=== PATIENT | female | born 1970 | race Caucasian/White ===

== ENCOUNTER 2017-06-29 15:46 | Emergency (ER) | payer MEDICAID, SELFPAY ==
[2017-06-29 15:48] VITALS: BP 161/97; PULSE 83; RESP 18; TEMP 36.8; O2SAT 95; BMI 35.3
--- NOTE | 2017-06-29 16:16 | ED.DCSUM_ITS ---
- ER Visit Summary Date of Service: 06/29/17 Chief Complaint: Sore throat and left ear pain History of Present Illness: The patient is a 47 F presenting with 2 days of sore throat and left ear pain. Left ear pain is worse than the throat. She has not tried treatment yet at home. No neck pain or rash. Physical Examination: No fever here. Throat is mildly erythematous but no exudates. Uvula midline. Voice normal. Left tympanic membrane is bulging and erythematous. I cannot visualize landmarks. Test Results: None performed Emergency Department Course and Treatment: He does appear to have an otitis media on the left. We will treat with oral antibiotics. Treatment Plan: Oral antibiotics and close follow-up Disposition: Home in stable condition Impression: Initial encounter acute left otitis media, initial encounter pharyngitis This note was generated with [employer] dictation software. It may contain incorrect words, spelling, and punctuation that were not noted in review of the chart prior to signing ED Disposition - Plan for ED Patient: Chief Complaint: Sore Throat Instructions: ED Otitis Media Acute Adult Prescriptions: Azithromycin [Zithromax] 250 mg PO DAILY #6 tablet Referrals: Tereza Nelson MD [Primary Care Provider] -
== END 2017-06-29 16:36 | disposition home or self-care (01) ==
LOC: ED 16:23
PROVIDERS: Emergency Provider Emergency Medicine; Family Provider Internal Medicine; PCP Internal Medicine
DX: J02.9 Acute pharyngitis, unspecified (principal); H66.92 Otitis media, unspecified, left ear; I10 Essential (primary) hypertension; M79.7 Fibromyalgia; Z79.899 Other long term (current) drug therapy
CPT/HCPCS: 99282

== ENCOUNTER → 2018-06-03 13:08 | Outpatient (CLI) | payer MEDICAID, SELFPAY ==
[2018-04-13 15:33] VITALS: BMI 35.3
[2018-06-03 15:42] LABS: Absolute Lymphocyte Count 2.06 X10^3/ul (0.83-4.51); Absolute Neutrophil Count 5.9 X10^3/uL (2.0-7.7); Basophil# 0.02 X10^3/uL; Basophil% 0.2 % (0-1); Eosinophil# 0.21 X10^3/uL; Eosinophils% 2.4 % (0-5); Hematocrit 42.8 % (37-47); Hemoglobin 13.5 g/dl (12.0-15.0); Lymphocyte # 2.06 X10^3/ul (4.0); Lymphocyte % 23.8 % (19-41); Mean Corp Hgb Conc 31.5 g/gl (32-36); Mean Corpuscular Hgb 28.4 pg (27.0-32.0); Mean Corpuscular Volume 90.1 fL (81-99); Mean Platelet Vol. 10.6 fl (6.2-12.0); Monocyte# 0.46 X10^3/uL; Monocyte% 5.3 % (0-10); Neutrophil # 5.89 X10^3/uL (2.7-7.7); Neutrophil % 68.2 % (47-70); Platelet Count 273 K/mm3 (150-450); RBC Distribution Width CV 13.7 % (11.6-14.6); RBC Distribution Width SD 45.3 fl (35.1-43.9); Red Blood Count 4.75 M/mm3 (4.2-5.4); White Blood Count 8.7 K/mm3 (4.4-11.0)
[2018-06-03 15:44] LABS: POSITIVE COUNT NO; POSITIVE DIFFERENTIAL NO; POSITIVE MORPHOLOGY NO
[2018-06-03 16:11] LABS: Albumin, Serum 3.5 g/dL (3.2-5.0); BUN 16 mg/dL (7-18); BUN/Creat Ratio 18.1 RATIO (10-20); Creatinine, Serum 0.88 mg/dL (0.55-1.02); EST Glomerular Filtration Rate 73 mL/min (>60); Est Glom Filt Rate - Afr Amer 88 mL/min (>60); Globulin 3.9 g/dL (2.2-4.2); Glucose 77 mg/dL (74-106); Protein, Total 7.4 g/dL (6.4-8.2)
[2018-06-03 16:12] LABS: ALB/GLOB Ratio 0.9 RATIO (0.9-2.4); AST(SGOT) 15 U/L (15-37); Alanine Aminotransfer ALT/SGPT 25 U/L (13-56); Alkaline Phosphatase 78 U/L (45-117); Anion Gap 8 (5-15); Calcium,Total 8.7 mg/dL (8.5-10.1); Chloride 108 mmol/L (98-107); Cholesterol 152 mg/dL (200); High Density Lipoprotein 51 mg/dL; Potassium 3.8 mmol/L (3.5-5.1); Sodium Level 143 mmol/L (136-145); Triglycerides 70 mg/dL; Very Low Density Lipoprotein 14 mg/dL (5-40)
== END ==
PROVIDERS: Family Provider Internal Medicine; PCP Internal Medicine; Referring Provider Internal Medicine; Visit Provider Internal Medicine
DX: I10 Essential (primary) hypertension (principal)
CPT/HCPCS: 36415; 80053; 80061; 85025

== ENCOUNTER → 2018-06-30 11:17 | Outpatient (CLI) | payer MEDICAID, SELFPAY ==
[2018-06-29 14:48] VITALS: BMI 35.3
--- NOTE | 2018-06-30 11:19 | RAD_ITS ---
HISTORY: CHRONIC LBP, NKI COMPARISON: None FINDINGS: # of images incl. paperwork: 5 XR Spine Lumbar Min 4 Views: 5 view lumbar spine. VERTEBRAE: Preserved vertebral body height. No fracture. Mild facet degeneration lower lumbar spine. VERTEBRAL ALIGNMENT: No spondylolisthesis. There is preservation of the normal lumbar lordosis. DISCS: Disc spaces are preserved. INCLUDED ABDOMEN: No pathologic calcifications observed. Included bowel gas pattern is non-obstructive. IMPRESSION: No acute findings. Mild facet degeneration lower lumbar spine. at 2329 Reported and signed by: Chad Amador MD Electronically Signed: Chad Amador, at 23:28 EST Tel , Service support , RAD/L/S Spine Min 4 Views
== END ==
PROVIDERS: Family Provider Internal Medicine; PCP Internal Medicine; Referring Provider Internal Medicine; Visit Provider Internal Medicine
DX: M54.16 Radiculopathy, lumbar region (principal)
CPT/HCPCS: 72110

== ENCOUNTER 2018-07-21 17:00 | Outpatient (RCR) | payer MEDICAID, SELFPAY ==
[2018-06-29 14:48] VITALS: BMI 35.3
--- NOTE | 2018-07-07 13:49 | HP.PTEVAL ---
Patient's Visit Information NGOC JANE is a 48 year old F referred to Physical Therapy by Tereza Nelson MD with a diagnosis of Lumbar Pain with Radiculopathy. Date of Evaluation: 07/07/18 Physical Therapist: Sophie Dominguez DPT - Visit Plan Frequency: 2x /Week Duration: 4 Weeks Plan: Modalities of Ultrasound and TENS with MHP. Exercise to improve posture and lifting mechanics at work - Subjective Findings: Patient reports back pain worse over the last few months. Back pain for her whole adult life. 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 the table she works on is about weight high. Feels that pain is about the same but not getting better or worse. She has fibro so she is always in pain but this is more noticeable. Pain is located in the low back on the right side and radiates to the knee. No pain past the knee. Describes the pain as burning. Pain comes and goes depending on activity level. Worst: 10/10 Agg: working, moveing around. Is able to maintain good posture t/o the day according to patient. Best: 5/10 Eases: nothing. Can only sit for an hour until she has to move around. Sleep: sometimes- sides- but doesn't have a preference on side. When she she doesn't feel good she gravitates to her left side. Does have some N/T in the toes but that comes and goes. Does not notice that her pain and N/T coordinate. Does not wear flip flips wears good high top tennis shoes. 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 Had an x-ray on her lumbar spine but was told they did not find anything- no MRI. PMHx: see scanned in chart Meds: scanned in chart. Was given Meloxicam for her back pains. - Objective Posture: no FH or RS- patient does have significant lordosis of the lumber spine. Sit to Stand: patient uses UE and pauses before she takes a step with the right- once moving it becomes fluid with no deviation. ROM: Lumbar: flexion- hands to knees, Extn: most from the thoracic spine as lumbar spine is already in lordosis. SB: WNL pain bilaterally Rot: WNL pain bilaterally. Hip/knee/Ankle: WNL. Strength: Core: poor, Hip: 4/5 throughout, pain with right SLR, Knee: 4+/5, Ankle: 5/5. Sensation/Reflex: WNL. Special Test: Dural signs: positive on right, SLR: positive on right. Slump: positive on right. Flex: HS: moderated, Gastroc: moderate - Goals Goal 1:: Patient will be I with HEP and progression Goal Time Frame: 4-6 Weeks Goal 2:: Patient will maintain proper posture t/o tx session to demo increased core s/s. Goal Time Frame: 4-6 Weeks Goal 3:: Patient will report 2/10 pain in low back and right LE Goal Time Frame: 4-6 Weeks - Rehabilitation Potential Physical Therapy Diagnosis: Patient presents with hypomobility- she has decreased strength, flex and muscular endurance leading to poor posture and increased pain with ADL's. Rehabilitation Potential: Fair - Anticipated Interventions Patient/Client Instruction: Educate patient on: Benefits of Fitness Program Therapeutic Exercise to Include: Strength training, Endurance training, Body mechanics, Postural training, Dynamic Lumbar Stabilization For the Purpose of:: To improve muscle performance and motor function TENS: Yes Cryotherapy (ice pack, ice massage): Yes Thermo therapy (hot pack): Yes Ultrasound (thermal/non thermal): Yes For the Purpose of:: To decrease pain, To decrease swelling/inflammation Thank you for the opportunity to evaluate your patient. For Medicare and Medicare HMO plans, please review the plan of care and approve it. It will need to be FAXED BACK to us at [phone] for Medicare purposes. For Medicare only, by signing this I certify the plan of care. Please let me know if there are questions or concerns regarding this plan of care. Physician Signature: Date:
--- NOTE | 2018-09-24 13:21 | HP.PTDCNRP_ITS ---
HP - Discharge Summary (1) - Patient Information NGOC JANE was seen in my office for initial evaluation on 07/07/18. The following Plan of Care was established for this patient: Initial Frequency: 2x /Week Initial Duration: 4 Weeks - Anticipated Interventions Patient/Client Instruction: Educate patient on: Benefits of Fitness Program Therapeutic Exercise to Include: Strength training, Endurance training, Body me chanics, Postural training, Dynamic Lumbar Stabilization For the Purpose of:: To improve muscle performance and motor function TENS: Yes Cryotherapy (ice pack, ice massage): Yes Thermo therapy (hot pack): Yes Ultrasound (thermal/non thermal): Yes For the Purpose of:: To decrease pain, To decrease swelling/inflammation This patient was last seen in our office . Pertinent comments regarding their Physical therapy will appear below: Patient has not attended physical therapy is over 30 days- appropriate to be d/c from PT and return to MD as needed for further evaluation. At this point I will be discontinuing this patient from physical therapy. I would be happy to see this patient again in the future if found appropriate by the physician. Thank you! JONNA GrantT
== END 2018-07-21 19:00 | disposition home or self-care (01) ==
LOC: PT 17:00
PROVIDERS: Family Provider Internal Medicine; PCP Internal Medicine; Referring Provider Internal Medicine; Visit Provider Internal Medicine
DX: M54.5 Low back pain (principal); M54.10 Radiculopathy, site unspecified
CPT/HCPCS: 97035; 97110; 97161

== ENCOUNTER 2018-07-23 17:58 | Emergency (ER) | payer MEDICAID, SELFPAY ==
[2018-06-29 14:48] VITALS: BMI 35.3
[2018-07-23 17:58] VITALS: BP 161/103; PULSE 91; RESP 16; TEMP 36.6; O2SAT 100; BMI 34.4
--- NOTE | 2018-07-23 18:30 | CT_ITS ---
STUDY: CT ABDOMEN AND PELVIS WITHOUT CONTRAST REASON FOR EXAM: Female, 48 years old. Left lower quadrant pain. RADIATION DOSAGE (If Supplied By Facility): CTDIvol = ( 18.78 ) mGy, DLP = ( 994.82 ) mGycm TECHNIQUE: Transaxial images were obtained from the dome of the diaphragm to the symphysis pubis without oral contrast, and without intravenous contrast. Sagittal and coronal images were reconstructed. Individualized dose optimization techniques were used for this CT. COMPARISON: None. FINDINGS: Lung bases are clear. Visualized heart is normal. The liver is unremarkable. The gallbladder is surgically absent. The spleen and pancreas are unremarkable. The adrenal glands are normal. The kidneys are unremarkable. No stones or hydronephrosis. The aorta is normal in caliber. There is no free fluid, free air, or organized collection. No bowel obstruction or inflammatory change. Stool burden is moderate. Normal appendix. Urinary bladder is unremarkable. Normal abdominal wall. Normal osseous structures. CT/Abdomen/Pelvis without Cont IMPRESSION: Normal CT of the abdomen and pelvis. Electronically Signed: Callie Rivera MD at 19:39 EST Tel , Service support ,
--- NOTE | 2018-07-23 18:32 | ED.VISSUMM ---
- ER Visit Summary Date of Service: 07/23/18 Chief Complaint: Left lower quadrant abdominal pain History of Present Illness: The patient is a 48 F history of hypertension. Prior cholecystectomy and hysterectomy with one ovary removed. She is also had bladder repair surgery. Patient states that this morning around 8 AM developed left very low lower quadrant abdominal pain. Denies any nausea, vomiting or diarrhea. No fever. No dysuria. No melena. States she is never had pain like this before. Denies any abdominal wall trauma. Denies any history of kidney stones or diverticulitis. Nothing particular makes the pain better or worse. Physical Examination: Middle-aged female bent over. Vital signs are stable and afebrile. She does not look septic or toxic. HEENT exam unremarkable. Neck nontender no lymphadenopathy. Lungs clear to auscultation bilaterally. Heart regular rate and rhythm no murmur rate about 9. Abdomen soft. Nondistended. Normal bowel sounds. No peritoneal signs. The left upper, right upper right lower quadrant are completely nontender. Her left lower quadrant very low just above the inguinal crease is reproducibly tender to palpation. There is no ecchymosis or bruising. No hernia or mass. There is no pulsatile mass. Patient moving all 4 extremities. Neurovascular intact. Back is nontender. Neurologically she is awake alert with no focal motor deficits. Equal symmetrical distribution dispatcher strength and dorsi and plantar flexion. Skin is unremarkable. Test Results: CBC White count 9. Hemoglobin 13. No bands. Electrolytes unremarkable potassium 3.3 normal creatinine and gap. Urinalysis unremarkable. No signs of blood or infection. CT flank without contrast shows no acute abnormality as read by the radiologist and reviewed by me. No obvious kidney stones seen no hydronephrosis and no diverticulitis. Emergency Department Course and Treatment: Patient was treated with IV morphine, Zofran and Toradol for pain. CT and labs along with a urinalysis will be obtained. Repeat exam the patient is doing well at 2039. She was treated with morphine, Zofran and Toradol. Her pain seemed to subsided. I explained her all of her test results and we do not have a specific cause of her pain. She will be discharged home to follow-up with her primary care physician as needed. Motrin and Tylenol for pain. Treatment Plan: Motrin and Tylenol for pain. Disposition: Discharge Impression: Acute left lower quadrant abdominal pain of uncertain etiology This note was generated with [employer] dictation software. It may contain incorrect words, spelling, and punctuation that were not noted in review of the chart prior to signing ED Disposition - Plan for ED Patient: Referrals: Tereza Nelson MD [Primary Care Provider] -
--- NOTE | 2018-07-23 18:35 | ED.DCSUM_ITS ---
- ER Visit Summary Date of Service: 07/23/18 Chief Complaint: Left lower quadrant abdominal pain History of Present Illness: The patient is a 48 F history of hypertension. Prior cholecystectomy and hysterectomy with one ovary removed. She is also had bladder repair surgery. Patient states that this morning around 8 AM developed left very low lower quadrant abdominal pain. Denies any nausea, vomiting or diarrhea. No fever. No dysuria. No melena. States she is never had pain like this before. Denies any abdominal wall trauma. Denies any history of kidney stones or diverticulitis. Nothing particular makes the pain better or worse. Physical Examination: Middle-aged female bent over. Vital signs are stable and afebrile. She does not look septic or toxic. HEENT exam unremarkable. Neck nontender no lymphadenopathy. Lungs clear to auscultation bilaterally. Heart regular rate and rhythm no murmur rate about 9. Abdomen soft. Nondistended. Normal bowel sounds. No peritoneal signs. The left upper, right upper right lower quadrant are completely nontender. Her left lower quadrant very low just above the inguinal crease is reproducibly tender to palpation. There is no ecchymosis or bruising. No hernia or mass. There is no pulsatile mass. Patient moving all 4 extremities. Neurovascular intact. Back is nontender. Neurologically she is awake alert with no focal motor deficits. Equal symmetrical toll bridge attendant strength and dorsi and plantar flexion. Skin is unremarkable. Test Results: CBC White count 9. Hemoglobin 13. No bands. Electrolytes unremarkable potassium 3.3 normal creatinine and gap. Urinalysis unremarkable. No signs of blood or infection. CT flank without contrast shows no acute abnormality as read by the radiologist and reviewed by me. No obvious kidney stones seen no hydronephrosis and no diverticulitis. Emergency Department Course and Treatment: Patient was treated with IV morphine, Zofran and Toradol for pain. CT and labs along with a urinalysis will be obtain ed. Repeat exam the patient is doing well at 2039. She was treated with morphine, Zofran and Toradol. Her pain seemed to subsided. I explained her all of her test results and we do not have a specific cause of her pain. She will be discharged home to follow-up with her primary care physician as needed. Motrin and Tylenol for pain. Treatment Plan: Motrin and Tylenol for pain. Disposition: Discharge Impression: Acute left lower quadrant abdominal pain of uncertain etiology This note was generated with [employer] dictation software. It may contain incorrect words, spelling, and punctuation that were not noted in review of the chart prior to signing ED Disposition - Plan for ED Patient: Referrals: Tereza Nelson MD [Primary Care Provider] -
[2018-07-23] MEDS: Morphine 4 MG/ML Syringe 6 MG IV (18:46)
[2018-07-23] MEDS: Ondansetron 4 MG/2 ML Vial IV (18:47)
[2018-07-23] MEDS: Ketorolac 30 MG/ML Syringe IV (18:47)
[2018-07-23 18:56] VITALS: TEMP 36.6
[2018-07-23 19:00] VITALS: TEMP 36.6
[2018-07-23 19:08] LABS: Absolute Lymphocyte Count 1.98 X10^3/ul (0.83-4.51); Absolute Neutrophil Count 6.7 X10^3/uL (2.0-7.7); Basophil# 0.02 X10^3/uL; Basophil% 0.2 % (0-1); Eosinophil# 0.21 X10^3/uL; Eosinophils% 2.2 % (0-5); Hematocrit 41.9 % (37-47); Hemoglobin 13.4 g/dl (12.0-15.0); Lymphocyte # 1.98 X10^3/ul (4.0); Lymphocyte % 20.8 % (19-41); Mean Corpuscular Hgb 28.3 pg (27.0-32.0); Mean Corpuscular Volume 88.6 fL (81-99); Mean Platelet Vol. 10.6 fl (6.2-12.0); Monocyte# 0.53 X10^3/uL; Monocyte% 5.6 % (0-10); Neutrophil # 6.74 X10^3/uL (2.7-7.7); Platelet Count 256 K/mm3 (150-450); RBC Distribution Width CV 13.7 % (11.6-14.6); RBC Distribution Width SD 44.4 fl (35.1-43.9); Red Blood Count 4.73 M/mm3 (4.2-5.4); White Blood Count 9.5 K/mm3 (4.4-11.0)
[2018-07-23 19:09] LABS: POSITIVE COUNT NO; POSITIVE DIFFERENTIAL NO; POSITIVE MORPHOLOGY NO
[2018-07-23 19:24] LABS: Anion Gap 9 (5-15); BUN 23 mg/dL (7-18); BUN/Creat Ratio 26.9 RATIO (10-20); Chloride 106 mmol/L (98-107); Creatinine, Serum 0.86 mg/dL (0.55-1.02); EST Glomerular Filtration Rate 76 mL/min (>60); Est Glom Filt Rate - Afr Amer 91 mL/min (>60); Estimated Creatinine Clearance 78.64 ml/min; Glucose 100 mg/dL (74-106); Potassium 3.3 mmol/L (3.5-5.1); Sodium Level 145 mmol/L (136-145)
[2018-07-23 19:26] LABS: Mucous, Urine 0 SEEN /hpf (<or=2+); Red Blood Cells-Urine 0 SEEN /hpf (0-5)
[2018-07-23 20:03] LABS: Color, Urine Yellow (Yellow); Glucose, Dipstick Normal (Normal); Ketone-Dipstick Negative (Negative); Leukocyte Esterase-Dipstick Negative /ul (Negative); Nitrite-Dipstick Negative (Negative); Occult Blood-Urine Negative /ul (Negative); Protein-Dipstick Negative (Negative); Specific Gravity, Urine 1.015 (1.002-1.030); Urine Bilirubin Dipstick Negative (Negative); Urine Clarity Sl. Cloudy (Clear); Urine Urobilinogen 1 mg/dl (Normal)
[2018-07-23 20:08] LABS: Amorphous Sediment 1+; Bacteria 1+ /hpf (None Seen); Squamous Epithelial Cells - UA 0-5 SEEN /hpf (5-10); White Blood Cells 0-5 SEEN /hpf (0-5)
[2018-07-23 20:15] VITALS: TEMP 37.1
[2018-07-23 20:20] VITALS: BP 150/79; PULSE 94; RESP 16; O2SAT 99
--- NOTE | 2018-07-23 20:42 | ED.DEP ---
ED Disposition - Plan for ED Patient: Disposition: Home or Assisted Living Instructions: ED Flank Pain Uncertain Cause Referrals: Tereza Nelson MD [Primary Care Provider] - 3-5 Days if not improving Additional Instructions: All your tests were normal today. The CAT scan did not show any signs of either a kidney stone or diverticulitis. There is no cause on the CAT scan for your pain. Your urine showed no signs of infection either. Tylenol and Motrin for pain. Your primary care physician if not improving.
== END 2018-07-23 21:22 | disposition home or self-care (01) ==
PROVIDERS: Emergency Provider Emergency Medicine; Family Provider Internal Medicine; PCP Internal Medicine
DX: R10.32 Left lower quadrant pain (principal); I10 Essential (primary) hypertension
CPT/HCPCS: 74176; 80048; 81001; 85025; 96374; 96375; 99283; J2405

== ENCOUNTER 2018-09-20 13:28 | Emergency (ER) | payer MEDICAID, SELFPAY ==
[2018-09-20 13:33] VITALS: BP 186/97; PULSE 87; RESP 18; TEMP 36.3; BMI 32.5
--- NOTE | 2018-09-20 13:50 | CT_ITS ---
STUDY: CT ABDOMEN AND PELVIS WITHOUT CONTRAST REASON FOR EXAM: Female, 48 years old. Left lower quadrant pain. History of cholecystectomy and hysterectomy. RADIATION DOSAGE (If Supplied By Facility): CTDIvol = ( 14.76 ) mGy, DLP = ( 752.49 ) mGycm TECHNIQUE: Transaxial images were obtained from the dome of the diaphragm to the symphysis pubis without oral contrast, and without intravenous contrast. Sagittal and coronal images were reconstructed. Individualized dose optimization techniques were used for this CT. COMPARISON: CT abdomen pelvis without contrast July 23, 2018. FINDINGS: The visualized lung bases are unremarkable. The visualized portions of the heart are within normal limits. Normal liver. Portal vein diameter is approximately 13 mm. There are surgical clips in the gallbladder fossa consistent with a prior cholecystectomy. The diameter of the common bile duct a 6 mm. Upper normal sized spleen. Normal pancreas. Normal bilateral adrenal glands. Normal right kidney. Normal left kidney. No hydronephrosis. Normal visualized stomach. Normal small intestine. Normal colon. The appendix is visualized and appears normal. Normal abdominal aorta. Normal inferior vena cava. Normal retroperitoneum. Nearly empty urinary bladder. There is absence of the uterus consistent with a prior hysterectomy. There is a stable small umbilical hernia containing fat. There are stable multilevel degenerative changes of the visualized spine. Stable 1 cm rounded lucency in the upper posterior L3 vertebra. CT/Abdomen/Pelvis without Cont IMPRESSION: 1. Prior cholecystectomy and hysterectomy. 2. No demonstrated abdominal mass or fluid collection. 3. The bowel is unremarkable without signs of obstruction. The appendix is normal. 4. Stable small, fat-containing umbilical hernia. 5. Stable 1 cm rounded lucency in the L3 vertebra, possibly a small hemangioma. Electronically Signed: Geovanny Benz MD at 14:59 EDT , Service support ,
[2018-09-20 14:03] LABS: Bacteria 0 SEEN /hpf (None Seen); Red Blood Cells-Urine 0 SEEN /hpf (0-5)
[2018-09-20 14:07] LABS: Color, Urine Yellow (Yellow); Glucose, Dipstick Normal (Normal); Ketone-Dipstick 5 mg/dl (Negative); Leukocyte Esterase-Dipstick Negative /ul (Negative); Nitrite-Dipstick Negative (Negative); Occult Blood-Urine Negative /ul (Negative); Protein-Dipstick 15 mg/dl (Negative); Urine Bilirubin Dipstick Negative (Negative); Urine Clarity Clear (Clear); Urine Urobilinogen Normal (Normal)
[2018-09-20] MEDS: Morphine 4 MG/ML Syringe IV (14:13)
[2018-09-20] MEDS: Ondansetron 4 MG/2 ML Vial IV (14:13)
[2018-09-20] MEDS: 0.9% Normal Saline 1,000 ML 150 ML IV (14:13)
[2018-09-20 14:15] LABS: Mucous, Urine 2+ /hpf (<or=2+); Squamous Epithelial Cells - UA 0-5 SEEN /hpf (5-10); White Blood Cells 0-5 SEEN /hpf (0-5)
[2018-09-20 14:25] LABS: Absolute Lymphocyte Count 1.32 X10^3/ul (0.83-4.51); Absolute Neutrophil Count 7.4 X10^3/uL (2.0-7.7); Basophil# 0.02 X10^3/uL; Basophil% 0.2 % (0-1); Eosinophil# 0.38 X10^3/uL; Hematocrit 42.3 % (37-47); Hemoglobin 14.1 g/dl (12.0-15.0); Lymphocyte # 1.32 X10^3/ul (4.0); Lymphocyte % 13.7 % (19-41); Mean Corp Hgb Conc 33.3 g/gl (32-36); Mean Corpuscular Hgb 28.4 pg (27.0-32.0); Mean Corpuscular Volume 85.3 fL (81-99); Mean Platelet Vol. 10.6 fl (6.2-12.0); Monocyte# 0.46 X10^3/uL; Monocyte% 4.8 % (0-10); Neutrophil # 7.42 X10^3/uL (2.7-7.7); Neutrophil % 77.2 % (47-70); Platelet Count 258 K/mm3 (150-450); RBC Distribution Width CV 13.7 % (11.6-14.6); RBC Distribution Width SD 41.9 fl (35.1-43.9); Red Blood Count 4.96 M/mm3 (4.2-5.4); White Blood Count 9.6 K/mm3 (4.4-11.0)
[2018-09-20 14:27] LABS: POSITIVE COUNT NO; POSITIVE DIFFERENTIAL NO; POSITIVE MORPHOLOGY NO
[2018-09-20 14:37] LABS: Anion Gap 6 (5-15); BUN 12 mg/dL (7-18); BUN/Creat Ratio 15.3 RATIO (10-20); Calcium,Total 8.5 mg/dL (8.5-10.1); Chloride 106 mmol/L (98-107); Creatinine, Serum 0.78 mg/dL (0.55-1.02); EST Glomerular Filtration Rate 84 mL/min (>60); Est Glom Filt Rate - Afr Amer 101 mL/min (>60); Estimated Creatinine Clearance 86.71 ml/min; Glucose 102 mg/dL (74-106); Potassium 3.6 mmol/L (3.5-5.1); Sodium Level 139 mmol/L (136-145)
--- NOTE | 2018-09-20 14:48 | EKG12_ITS ---
Test Reason : ABD PAIN Blood Pressure : / mmHG Vent. Rate : 073 BPM Atrial Rate : 073 BPM P-R Int : 160 ms QRS Dur : 078 ms QT Int : 394 ms P-R-T Axes : 043 006 021 degrees QTc Int : 434 ms Normal sinus rhythm Septal LA, age undetermined, cannot be excluded Nonspecific ST abnormality Abnormal ECG Confirmed by SANKET BLAS, KILEY ([id number]), newspaper editor managing WYATT SALCIDO ([id number]) on 09/22/2018 11:10:59 AM Referred By: DARWIN Confirmed By:KILEY COLES MD
[2018-09-20 15:02] VITALS: BP 170/89; PULSE 80; RESP 17; O2SAT 100
--- NOTE | 2018-09-20 15:32 | ED.VISSUMM ---
- ER Visit Summary Date of Service: 09/20/18 Chief Complaint: Abdominal pain History of Present Illness: The patient is a 48 F with rather abrupt onset of left lower quadrant abdominal pain that started 11 AM this morning. It wraps around her left buttock. It does not radiate to the flank region. She reports mild diarrhea and mild nausea. No urinary symptoms. She has not had fever or chills. Past medical history significant for fibromyalgia, arthritis, back pain, hypertension. She is had prior cholecystotomy hysterotomy. She is not sure if her ovaries were removed. She has had a bladder sling. Physical Examination: Blood pressure is 186/97, otherwise vitals normal. Patient lying on her left side. She is in no acute distress. Heart is regular rate and rhythm. Lung sounds are clear. Abdomen is soft with tenderness in the left lower quadrant. No guarding or rebound. Back examination does not reveal CVA tenderness. Test Results: CBC and chemistry studies normal. Urinalysis normal. CT abdomen pelvis shows prior marguerite and hysterectomy. No abdominal mass or fluid collection is noted. Stable umbilical hernia is noted. Emergency Department Course and Treatment: Patient was given morphine, Zofran, and IV fluids. Returning from CT patient was complaining of some mild chest tightness. She is placed on nurse monitoring and EKG was obtained and is unremarkable. Physical examination remains unchanged. At this time test results are discussed with patient. I do not see significant cause for pain at this time. She was given something for pain, will follow bland diet, and return for any worsening symptoms. Treatment Plan: [] Disposition: Discharge Impression: Abdominal pain, uncertain etiology This note was generated with [employer] dictation software. It may contain incorrect words, spelling, and punctuation that were not noted in review of the chart prior to signing ED Disposition - Plan for ED Patient: Disposition: Home or Assisted Living Instructions: ED Abdominal Pain Unkn Cause Prescriptions: Hydrocodone Bitart/Apap 5-325 [[place] 5MG-325MG] 1 tablet PO Q6H PRN PRN 3 Days #10 tablet PRN Reason: Pain Referrals: Tereza Nelson MD [Primary Care Provider] - 5-7 Days
--- NOTE | 2018-09-20 15:35 | ED.DCSUM_ITS ---
- ER Visit Summary Date of Service: 09/20/18 Chief Complaint: Abdominal pain History of Present Illness: The patient is a 48 F with rather abrupt onset of left lower quadrant abdominal pain that started 11 AM this morning. It wraps around her left buttock. It does not radiate to the flank region. She reports mild diarrhea and mild nausea. No urinary symptoms. She has not had fever or chills. Past medical history significant for fibromyalgia, arthritis, back pain, hypertension. She is had prior cholecystotomy hysterotomy. She is not sure if her ovaries were removed. She has had a bladder sling. Physical Examination: Blood pressure is 186/97, otherwise vitals normal. Patient lying on her left side. She is in no acute distress. Heart is regular rate and rhythm. Lung sounds are clear. Abdomen is soft with tenderness in the left lower quadrant. No guarding or rebound. Back examination does not reveal CVA tenderness. Test Results: CBC and chemistry studies normal. Urinalysis normal. CT abdomen pelvis shows prior marguerite and hysterectomy. No abdominal mass or fluid collection is noted. Stable umbilical hernia is noted. Emergency Department Course and Treatment: Patient was given morphine, Zofran, and IV fluids. Returning from CT patient was complaining of some mild chest tightness. She is placed on garment sewer hand and EKG was obtained and is unremarkable. Physical examination remains unchanged. At this time test results are discussed with patient. I do not see significant cause for pain at this time. She was given something for pain, will follow bland diet, and return for any worsening symptoms. Treatment Plan: [] Disposition: Discharge Impression: Abdominal pain, uncertain etiology This note was generated with [employer] dictation software. It may contain incorrect words, spelling, and punctuation that were not noted in review of the chart prior to signing ED Disposition - Plan for ED Patient: Disposition: Home or Assisted Living Instructions: ED Abdominal Pain Unkn Cause Prescriptions: Hydrocodone Bitart/Apap 5-325 [[place] 5MG-325MG] 1 tablet PO Q6H PRN PRN 3 Days #10 tablet PRN Reason: Pain Referrals: Tereza Nelson MD [Primary Care Provider] - 5-7 Days
[2018-09-20] MEDS: Ketorolac 30 MG/ML Syringe IV (15:42)
[2018-09-20 15:43] VITALS: BP 153/92; PULSE 75; RESP 16; O2SAT 100
== END 2018-09-20 15:47 | disposition home or self-care (01) ==
PROVIDERS: Emergency Provider Emergency Medicine; Family Provider Internal Medicine; PCP Internal Medicine
DX: R10.32 Left lower quadrant pain (principal); R07.89 Other chest pain; I10 Essential (primary) hypertension; Z87.891 Personal history of nicotine dependence
CPT/HCPCS: 74176; 80048; 81001; 85025; 93005; 96361; 96374; 96375; 99285; J7030; A4216; J2405

== ENCOUNTER → 2018-10-21 08:51 | Outpatient (CLI) | payer MEDICAID, SELFPAY ==
[2018-04-13 15:33] VITALS: BMI 35.3
[2018-10-07 15:59] VITALS: BMI 32.5
--- NOTE | 2018-10-21 08:53 | US_ITS ---
STUDY: ULTRASOUND BREAST - LEFT REASON FOR EXAM: Female, 48 years old. Palpable lump left breast. TECHNIQUE: Axial and longitudinal images of the LEFT breast were performed with a high resolution ultrasound transducer. COMPARISON: Comparison is made with prior mammogram done earlier in the day. FINDINGS: LEFT Breast: The lateral half of the left breast was examined by ultrasound. There is homogeneous fibroglandular tissue. No solid or cystic mass lesion is seen. US/Breast Limited Unilateral IMPRESSION: Unremarkable sonographic examination of the left breast. ASSESSMENT CATEGORY: BIRADS Category 1: Negative. A letter regarding these results will be sent to the patient by the facility within 30 days. Electronically Signed: Deonte Montes, at 10:29 EDT , Service support ,
--- NOTE | 2018-10-21 08:53 | BI_ITS ---
MAMMOGRAPHY - BILATERAL DIAGNOSTIC REASON FOR EXAM: Female, 48 years old. Palpable abnormality in the upper anterior aspect of the left breast. PERTINENT HISTORY: Grandmother with breast cancer. TECHNIQUE: Digital bilateral breast bryce (3D mammographic acquisition) in the CC and MLO projections. 2-D mediolateral oblique (MLO) and craniocaudad (CC) views of both breasts were obtained. CAD: Full Field Digital Mammography with Computer Added Detection was performed. COMPARISON: Comparison is made with prior outside examination dated August 30, 2016. FINDINGS: Breast Composition: The breasts are heterogeneously dense, which may obscure small masses. There are no dominant masses or suspicious calcifications. Stable appearance of the small bilateral axillary lymph nodes. No other significant abnormalities are identified. There has been no significant change since the prior study. BI/DIAG MAMM W/CAD, BILAT IMPRESSION: Stable bilateral diagnostic mammogram. With the patient's history of a palpable abnormality in the left breast, correlation with ultrasound is recommended. ASSESSMENT CATEGORY: BIRADS Category 0: Incomplete. Need additional imaging evaluation. A letter regarding these results will be sent to the patient by the facility within 30 days. Approximately 10% of breast cancers are not detected by mammography. A normal mammogram should not delay biopsy of a clinically suspicious abnormality. Electronically Signed: Deonte Montes, at 14:21 EDT , Service support ,
== END ==
PROVIDERS: Family Provider Internal Medicine; PCP Internal Medicine; Referring Provider Obstetrics & Gynecology; Visit Provider Obstetrics & Gynecology
DX: N63.20 Unspecified lump in the left breast, unspecified quadrant (principal)
CPT/HCPCS: 76642; 77062; 77066; G0279

== ENCOUNTER 2019-06-22 17:26 | Emergency (ER) | payer SELFPAY ==
[2019-01-20 13:13] VITALS: BMI 31.0
[2019-06-22 17:28] VITALS: BP 144/86; PULSE 90; RESP 16; TEMP 36.4; O2SAT 100; BMI 32.3
--- NOTE | 2019-06-22 18:50 | ED.VIS.GEN ---
History of Present Illness Chief Complaint: Nausea/Vomiting Informant: Patient Onset: Yesterday Narrative: Patient is an 49-year-old female with history of hypertension, fibromyalgia and chronic pain presenting with nausea, vomiting and headache. Patient states at 830 this morning she woke up with nauseous and started throwing up. She states she thrown up to many times to count. She states that she is yellow in her vomit. She denies any associated diarrhea or change in her bowel habits. She has associated epigastric discomfort. She denies any radiation of the pain. She notes she also has a headache. She states is in the front of her head and feels like pressure. She had chills yesterday. She is had some family members that have been sick with a had upper respiratory symptoms. Patient know she is prone to headaches when she is feeling unwell. She has similar episode a couple years ago where she was given fluids nausea medicine and discharged home. She does not know what it actually was. Patient states she last threw up in the waiting room while in the ER. She denies any associated fever. She denies any other complaints at this time. Past Medical History - Allergies and Home Meds Allergies/Adverse Reactions: Allergies coconut oil Allergy (Verified 06/22/19 17:28) Unknown fish oil Allergy (Verified 06/22/19 17:28) Unknown lactase Allergy (Verified 06/22/19 17:28) Unknown oxaprozin [From Daypro] Adverse Reaction (Verified 06/22/19 17:28) Nausea bee Allergy (Intermediate, Uncoded 06/22/19 17:28) itching pine Allergy (Unknown, Uncoded 06/22/19 17:28) itching Primary Care Physician: Tereza Nelson MD [Primary Care Provider] - Past Medical History: - - Hypertension, fibromyalgia, chronic pain Surgical History: - - Hysterectomy, bilateral carpal tunnel surgery, cholecystectomy, exploratory back surgery Lives: With Family Smoking Status: Former smoker Alcohol: Rare Drugs: None Review of Systems General: Reports: Chills, Malaise. Denies: Fever, Sweats Eyes: Denies: Visual changes - bilaterally, Diplopia ENT: Denies: Rhinorrhea, Sore throat Cardiovascular: Denies: Chest pain, Palpitations Respiratory: Denies: Dyspnea, Cough, Dyspnea on exertion Gastrointestinal: Reports: Abdominal pain, Nausea, Vomiting. Denies: Diarrhea, Melena, Hematochezia Genitourinary: Denies: Dysuria, Hematuria, Frequency Musculoskeletal: Denies: Back pain, Extremity Pain Skin: Denies: Rash, Wounds Neurological: Reports: Headache. Denies: Weakness, Numbness Physical Exam Vital Signs/Narrative: Vital Signs Temp Pulse Resp BP Pulse Ox 06/22/19 17:28 97.5 F L 90 16 144/86 H 100 Inital Vital Signs reviewed: Yes General: Well nourished, Well developed, No Acute Distress Head: Normocephalic, Atraumatic Eyes: Perrl, EOMI, - - Nystagmus absent ENT: Moist mucous membranes, No rhinorrhea, TM's clear Neck: Supple, Nontender Cardiovascular: Regular rate, Regular rhythm, No murmurs Respiratory: No distress, CTA bilaterally, Chest nontender Abdomen: Soft, Nontender, Nondistended, Normal bowel sounds Back: Nontender, Normal Inspection Extremities: Nontender, No edema Skin: Normal color, No rash Neurological: Alert, Oriented x3, Cranial nerves II-XII grossly intact, Normal Strength, Normal Sensation Psychological: Normal affect, Normal Mood Diagnostic/Tx/Re-eval Clinical Impression(s) from Imaging Studies Brain CT 06/22/19 20:53 IMPRESSION: Normal unenhanced CT scan of the brain. Electronically Signed: Earle Cristobal MD at 21:40 EST , Service support , Laboratory Data 06/22/19 06/22/19 18:55 18:55 WBC 10.7 RBC 4.95 Hgb 14.1 Hct 43.7 MCV 88.3 MCH 28.5 MCHC 32.3 RDW Std Deviation 41.4 RDW Coeff of Lisbet 12.9 Plt Count 261 MPV 10.6 Immature Gran % (Auto) 0.300 Neut % (Auto) 89.3 H Lymph % (Auto) 8.5 L [place] % (Auto) 1.8 Eos % (Auto) 0.0 Baso % (Auto) 0.1 Absolute Neuts (auto) 9.6 H Absolute Lymphs (auto) 0.91 Nucleated RBC % 0 Sodium 140 Potassium 4.1 Chloride 107 Carbon Dioxide 27.0 Anion Gap 6 BUN 13 Creatinine 0.82 Estim Creat Clear Calc 78.54 Est GFR (MDRD) Af Amer 96 Est GFR (MDRD) Non-Af 79 BUN/Creatinine Ratio 15.9 Glucose 108 H Calcium 9.2 Total Bilirubin 0.60 AST 22 ALT 28 Alkaline Phosphatase 90 Total Protein 8.0 Albumin 3.9 Globulin 4.1 Albumin/Globulin Ratio 1.0 Lipase 44 L - Medical Decision Making She is evaluated for nausea, vomiting and headache. She seems to have more flulike symptoms. Flu swab is negative. CBC, CMP and lipase are all normal. Patient has a normal neurologic exam. Head CT obtained because patient feels that she is having blurry vision along with her headache. Patient does not have any neck pain or fever. I do not suspect meningitis. CT does not show any acute intracranial process. Patient notes that she does have a history of headaches and this feels like her prior headaches. I do not think this is spontaneous subarachnoid hemorrhage and I did not perform an LP. Patient is initially given Zofran which helped with her nausea but not her headache. She is then given Compazine and Benadryl. On reevaluation states she is feeling better. After the CT results she is given Toradol. Patient be discharged home with a work note for tomorrow as well as a course of Zofran. Patient is counseled on signs and symptoms requiring return to the emergency room. Patient verbalizes agreement and understand this plan. Patient discharged home in stable and improved condition. ED Disposition - Plan for ED Patient: Disposition: Home or Assisted Living Diagnosis: Headache, Nausea and vomiting Instructions: HEADACHE, Unspecified, VOMITING (7y-Adult) Prescriptions: Ondansetron [Zofran Odt] 4 mg PO Q8H PRN PRN #10 tab PRN Reason: Nausea Prescription Printed Referrals: Tereza Nelson MD [Primary Care Provider] - Additional Instructions: Your work-up was largely normal today. You are safe for outpatient follow-up with your primary care doctor. Return the emergency room with worsening symptoms.
[2019-06-22] MEDS: Acetaminophen 500 MG Tablet 1000 MG PO (19:08)
[2019-06-22] MEDS: 0.9% Normal Saline 1,000 ML 1000 ML IV (19:09)
[2019-06-22] MEDS: Ondansetron 4 MG/2 ML Vial IV (19:09)
[2019-06-22 19:19] LABS: Absolute Lymphocyte Count 0.91 X10^3/uL (0.83-4.51); Absolute Neutrophil Count 9.6 X10^3/uL (2.0-7.7); Basophil# 0.01 X10^3/uL; Basophil% 0.1 % (0-1); Hematocrit 43.7 % (37-47); Hemoglobin 14.1 g/dL (12.0-15.0); Lymphocyte # 0.91 X10^3/ul (4.0); Lymphocyte % 8.5 % (19-41); Mean Corp Hgb Conc 32.3 g/dL (32-36); Mean Corpuscular Hgb 28.5 pg (27.0-32.0); Mean Corpuscular Volume 88.3 fL (81-99); Mean Platelet Vol. 10.6 fl (6.2-12.0); Monocyte# 0.19 X10^3/uL; Monocyte% 1.8 % (0-10); NRBC Flagged by Analyzer 0 % (0-5); Neutrophil % 89.3 % (47-70); Platelet Count 261 K/mm3 (150-450); RBC Distribution Width CV 12.9 % (11.6-14.6); RBC Distribution Width SD 41.4 fl (35.1-43.9); Red Blood Count 4.95 M/mm3 (4.2-5.4); White Blood Count 10.7 K/mm3 (4.4-11.0)
[2019-06-22 19:35] LABS: AST(SGOT) 22 U/L (15-37); Alanine Aminotransfer ALT/SGPT 28 U/L (13-56); Albumin, Serum 3.9 g/dL (3.2-5.0); Alkaline Phosphatase 90 U/L (45-117); Anion Gap 6 (5-15); BUN 13 mg/dL (7-18); BUN/Creat Ratio 15.9 RATIO (10-20); Calcium,Total 9.2 mg/dL (8.5-10.1); Chloride 107 mmol/L (98-107); Creatinine, Serum 0.82 mg/dL (0.55-1.02); EST Glomerular Filtration Rate 79 mL/min (>60); Est Glom Filt Rate - Afr Amer 96 mL/min (>60); Estimated Creatinine Clearance 78.54 ml/min; Globulin 4.1 g/dL (2.2-4.2); Glucose 108 mg/dL (74-106); Lipase 44 U/L (73-393); Potassium 4.1 mmol/L (3.5-5.1); Sodium Level 140 mmol/L (136-145)
--- NOTE | 2019-06-22 20:53 | CT_ITS ---
STUDY: CT BRAIN WITHOUT CONTRAST REASON FOR EXAM: Female, 49 years old. HEADACHE TODAY. PT STATES EARRINGS DONT COME OUT. RADIATION DOSAGE (If Supplied By Facility): CTDIvol = ( 60.81 ) mGy, DLP = ( 1067.08 ) mGycm TECHNIQUE: Transaxial CT imaging of the brain was performed without administration of intravenous contrast material. Individualized dose optimization techniques were used for this CT. COMPARISON: No relevant priors. FINDINGS: Normal soft tissue structures. Normal calvarium. Normal size ventricles and extra-axial spaces for the patient''s age. Normal white matter tracts of the cerebral hemispheres. Normal basal ganglia and thalami. Normal brainstem. Normal cerebellum. There is no intracranial hemorrhage. There are no findings of an acute ischemic infarction. Normal visualized paranasal sinuses. CT/Brain/Head without Contrast IMPRESSION: Normal unenhanced CT scan of the brain. Electronically Signed: Earle Cristobal MD at 21:40 EST , Service support ,
[2019-06-22] MEDS: DiphenhydrAMINE 50 MG/ML Syringe 25 MG IV (21:35)
[2019-06-22] MEDS: proCHLORPERazine 10 MG/2 ML Vial IV (21:35)
[2019-06-22 21:44] VITALS: BP 149/102; PULSE 89; RESP 16; O2SAT 100
[2019-06-22] MEDS: Ketorolac 15 MG/ML Vial IV (22:31)
[2019-06-22 22:34] VITALS: BP 164/105; PULSE 85; RESP 16; O2SAT 95
== END 2019-06-22 22:35 | disposition home or self-care (01) ==
PROVIDERS: Emergency Provider Emergency Medicine; PCP Internal Medicine
DX: R11.2 Nausea with vomiting, unspecified (principal); R51 Headache; I10 Essential (primary) hypertension; M79.7 Fibromyalgia; Z87.891 Personal history of nicotine dependence
CPT/HCPCS: 70450; 80053; 83690; 85025; 87804; 96361; 96374; 96375; 99283; J7030; A4216; J2405

== ENCOUNTER → 2020-01-03 08:47 | Outpatient (CLI) | payer MEDICAID, SELFPAY ==
--- NOTE | 2020-01-03 08:58 | EKG12_ITS ---
Test Reason : HTN Blood Pressure : / mmHG Vent. Rate : 080 BPM Atrial Rate : 080 BPM P-R Int : 162 ms QRS Dur : 082 ms QT Int : 392 ms P-R-T Axes : 060 028 011 degrees QTc Int : 452 ms Normal sinus rhythm Normal ECG Confirmed by LISA BLAS, CANDIDO ([id number]), make up editor WYATT SALCIDO ([id number]) on 01/04/2020 10:47:21 AM Referred By: Milad Hope Confirmed By:CANDIDO GONZALEZ MD
[2020-01-03 09:07] LABS: Absolute Lymphocyte Count 1.55 X10^3/uL (0.83-4.51); Absolute Neutrophil Count 5.8 X10^3/uL (2.0-7.7); Basophil# 0.03 X10^3/uL; Basophil% 0.4 % (0-1); Eosinophil# 0.17 X10^3/uL; Eosinophils% 2.1 % (0-5); Hematocrit 43.5 % (37-47); Hemoglobin 14.1 g/dL (12.0-15.0); Lymphocyte # 1.55 X10^3/ul (4.0); Lymphocyte % 19.1 % (19-41); Mean Corp Hgb Conc 32.4 g/dL (32-36); Mean Corpuscular Hgb 29.7 pg (27.0-32.0); Mean Corpuscular Volume 91.6 fL (81-99); Mean Platelet Vol. 10.5 fl (6.2-12.0); Monocyte# 0.49 X10^3/uL; NRBC Flagged by Analyzer 0 % (0-5); Neutrophil # 5.84 X10^3/uL (2.7-7.7); Platelet Count 244 K/mm3 (150-450); RBC Distribution Width CV 12.6 % (11.6-14.6); RBC Distribution Width SD 41.9 fl (35.1-43.9); Red Blood Count 4.75 M/mm3 (4.2-5.4); White Blood Count 8.1 K/mm3 (4.4-11.0)
[2020-01-03 09:27] LABS: Hemoglobin A1c 5.3 % (3.8-5.6)
[2020-01-03 09:40] LABS: ALB/GLOB Ratio 0.9 RATIO (0.9-2.4); AST(SGOT) 13 U/L (15-37); Alanine Aminotransfer ALT/SGPT 20 U/L (13-56); Albumin, Serum 3.5 g/dL (3.2-5.0); Alkaline Phosphatase 87 U/L (45-117); Anion Gap 6 (5-15); BUN 21 mg/dL (7-18); BUN/Creat Ratio 24.1 RATIO (10-20); Calcium,Total 8.2 mg/dL (8.5-10.1); Chloride 105 mmol/L (98-107); Cholesterol 150 mg/dL (200); Creatinine, Serum 0.87 mg/dL (0.55-1.02); EST Glomerular Filtration Rate 74 mL/min (>60); Est Glom Filt Rate - Afr Amer 89 mL/min (>60); Globulin 3.8 g/dL (2.2-4.2); Glucose 97 mg/dL (74-106); High Density Lipoprotein 56 mg/dL; Potassium 3.9 mmol/L (3.5-5.1); Protein, Total 7.3 g/dL (6.4-8.2); Sodium Level 140 mmol/L (136-145); Thyroid Stim Hormone (TSH) 2.26 uIU/mL (0.358-3.74); Triglycerides 45 mg/dL; Very Low Density Lipoprotein 9 mg/dL (5-40)
== END ==
PROVIDERS: PCP Internal Medicine; Referring Provider Nurse Practitioner Family; Visit Provider Nurse Practitioner Family
DX: I10 Essential (primary) hypertension (principal); F32.9 Major depressive disorder, single episode, unspecified
CPT/HCPCS: 36415; 80053; 80061; 83036; 84443; 85025; 93005

== ENCOUNTER → 2020-10-06 11:21 | Outpatient (CLI) | payer MEDICAID, SELFPAY ==
[2020-09-12 09:56] VITALS: BMI 34.6
[2020-10-06 12:51] LABS: Anion Gap 5 (5-15); BUN 19 mg/dL (7-18); BUN/Creat Ratio 25.9 RATIO (10-20); Calcium,Total 8.7 mg/dL (8.5-10.1); Chloride 105 mmol/L (98-107); Creatinine, Serum 0.73 mg/dL (0.55-1.02); EST Glomerular Filtration Rate 89 mL/min (>60); Est Glom Filt Rate - Afr Amer 108 mL/min (>60); Glucose 99 mg/dL (74-106); Potassium 3.5 mmol/L (3.5-5.1); Sodium Level 142 mmol/L (136-145)
== END ==
PROVIDERS: PCP Internal Medicine; Referring Provider Nurse Practitioner Family; Visit Provider Nurse Practitioner Family
DX: I10 Essential (primary) hypertension (principal)
CPT/HCPCS: 36415; 80048

== ENCOUNTER → 2020-12-12 10:35 | Outpatient (CLI) | payer MEDICAID, SELFPAY ==
[2020-12-12 10:12] VITALS: BMI 34.6
[2020-12-12 12:37] LABS: Absolute Lymphocyte Count 1.86 X10^3/uL (0.83-4.51); Absolute Neutrophil Count 6.6 X10^3/uL (2.0-7.7); Basophil# 0.03 X10^3/uL; Basophil% 0.3 % (0-1); Eosinophil# 0.22 X10^3/uL; Eosinophils% 2.4 % (0-5); Hematocrit 38.9 % (37-47); Hemoglobin 12.4 g/dL (12.0-15.0); Lymphocyte # 1.86 X10^3/ul (0.83-4.51); Mean Corp Hgb Conc 31.9 g/dL (32-36); Mean Corpuscular Hgb 29.4 pg (27.0-32.0); Mean Corpuscular Volume 92.2 fL (81-99); Mean Platelet Vol. 10.5 fl (6.2-12.0); Monocyte# 0.56 X10^3/uL; NRBC Flagged by Analyzer 0 % (0-5); Neutrophil # 6.57 X10^3/uL (2.7-7.7); Neutrophil % 70.9 % (47-70); Platelet Count 346 K/mm3 (150-450); RBC Distribution Width SD 44.3 fl (35.1-43.9); Red Blood Count 4.22 M/mm3 (4.2-5.4); White Blood Count 9.3 K/mm3 (4.4-11.0)
[2020-12-12 12:51] LABS: Cholesterol 134 mg/dL (200); High Density Lipoprotein 47 mg/dL; Triglycerides 75 mg/dL
[2020-12-12 12:52] LABS: Very Low Density Lipoprotein 15 mg/dL (5-40)
== END ==
PROVIDERS: PCP Internal Medicine; Referring Provider Internal Medicine; Visit Provider Internal Medicine
DX: I10 Essential (primary) hypertension (principal)
CPT/HCPCS: 36415; 80061; 85025

== ENCOUNTER → 2021-02-05 10:04 | Outpatient (CLI) | payer MEDICAID, SELFPAY ==
--- NOTE | 2021-02-05 10:06 | BI_ITS ---
MAMMOGRAPHY - BILATERAL SCREENING REASON FOR EXAM: Female, 50 years old. Routine annual screening examination. PERTINENT HISTORY: Grandmother with breast cancer. Aunts with breast cancer. TECHNIQUE: Digital bilateral breast joni (3D mammographic acquisition) in the CC and MLO projections. 2-D mediolateral oblique (MLO) and craniocaudad (CC) views of both breasts were obtained. CAD: Full Field Digital Mammography with Computer Added Detection was performed. COMPARISON: Comparison is made with prior examination of 10/21/2018. FINDINGS: Breast Composition: The breasts are heterogeneously dense, which may obscure small masses. There are no dominant masses or suspicious calcifications. Stable benign appearing bilateral axillary lymph nodes. No other significant abnormalities are identified. There has been no significant change since the prior study. BI/SCRN MAMM (CAD)W/JONI BILAT IMPRESSION: Stable bilateral screening mammogram. Yearly follow-up mammogram recommended. (A) ASSESSMENT CATEGORY: BIRADS Category 2: Benign. A letter regarding these results will be sent to the patient by the facility within 30 days. Approximately 10% of breast cancers are not detected by mammography. A normal mammogram should not delay biopsy of a clinically suspicious abnormality. [id number] Electronically Signed: Deonte Montes MD at 11:14 EDT , Service support ,
== END ==
PROVIDERS: PCP Internal Medicine; Referring Provider Nurse Practitioner Women's Health; Visit Provider Nurse Practitioner Women's Health
DX: Z12.31 Encounter for screening mammogram for malignant neoplasm of breast (principal)
CPT/HCPCS: 77063; 77067

== ENCOUNTER → 2022-05-28 | Outpatient (CLI) | payer MEDICAID, SELFPAY ==
--- NOTE | 2022-05-28 14:27 | US_ITS ---
STUDY: ULTRASOUND BREAST - RIGHT REASON FOR EXAM: Female, 52 years old. Palpable lump in the right breast. TECHNIQUE: Axial and longitudinal images of the RIGHT breast were performed with a high resolution ultrasound transducer. # OF IMAGES: 22 COMPARISON: Comparison is made with prior mammogram done earlier in the day. FINDINGS: RIGHT Breast: The upper outer quadrant of the right breast was examined with ultrasound. There is evidence of fibroglandular tissue. No solid or cystic masses seen. US/Breast Limited Unilateral IMPRESSION: Ultrasound of the upper outer quadrant of the right breast was performed. No sonographic abnormality is seen. ASSESSMENT CATEGORY: BIRADS Category 1: Negative. A letter regarding these results will be sent to the patient by the facility within 30 days. Electronically Signed: Deonte Montes MD at 15:28 EST ,
--- NOTE | 2022-05-28 14:27 | BI_ITS ---
MAMMOGRAPHY - BILATERAL DIAGNOSTIC REASON FOR EXAM: Female, 52 years old. Two-week history of right breast lump. PERTINENT HISTORY: Grandmother with breast cancer. Aunt with breast cancer. TECHNIQUE: Digital bilateral breast bryce (3D mammographic acquisition) in the CC and MLO projections. 2-D mediolateral oblique (MLO) and craniocaudad (CC) views of both breasts were obtained. CAD: Full Field Digital Mammography with Computer Added Detection was performed. COMPARISON: Comparison is made with prior examination dated 02/05/2021 and 10/21/2018. FINDINGS: Breast Composition: The breasts are heterogeneously dense, which may obscure small masses. There are no dominant masses or suspicious calcifications. Stable small benign appearing bilateral axillary. No other significant abnormalities are identified. There has been no significant change since the prior study. BI/DIAG MAMM W/CAD, BILAT IMPRESSION: Stable bilateral diagnostic mammogram. One year follow-up recommended. (A) ASSESSMENT CATEGORY: BIRADS Category 2: Benign. A letter regarding these results will be sent to the patient by the facility within 30 days. Approximately 10% of breast cancers are not detected by mammography. A normal mammogram should not delay biopsy of a clinically suspicious abnormality. Electronically Signed: Deonte Montes MD at 15:27 EST ,
== END | disposition home or self-care (01) ==
LOC: OPBI 14:25
PROVIDERS: PCP Internal Medicine; Referring Provider Obstetrics & Gynecology; Visit Provider Obstetrics & Gynecology
DX: R92.2 Inconclusive mammogram (principal); N63.0 Unspecified lump in unspecified breast
CPT/HCPCS: 77062; 76642; 77066; G0279

== ENCOUNTER → 2023-04-10 | Outpatient (CLI) | payer MEDICAID, SELFPAY ==
--- NOTE | 2023-04-10 14:30 | RAD_ITS ---
STUDY: X-RAY - PELVIS AND RIGHT HIP REASON FOR EXAM: Female, 53 years old. Right hip pain. TECHNIQUE: 4 views of the pelvis and right hip. COMPARISON: None. FINDINGS: There is a non-specific bowel gas pattern. There is a surgical clip in the true pelvis.. Normal bilateral iliac wings, sacroiliac joints and visualized sacrum. Normal bilateral superior and inferior pubic rami. Normal pubic symphysis. Normal bilateral ischial tuberosities. Normal visualized femoral head. There is tiny osteoarthritic spur formation of the acetabular rims bilaterally. Intact hip joint. There is no demonstrated acute fracture. 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 Electronically Signed: Darrel Alegre MD at 16:03 EST ,
== END | disposition home or self-care (01) ==
LOC: RAD 14:13
PROVIDERS: PCP Internal Medicine; Visit Provider Internal Medicine
DX: M25.551 Pain in right hip (principal)
CPT/HCPCS: 73502